=== PATIENT | male | born 1965 | race Caucasian/White ===

== ENCOUNTER → 2021-01-01 | Outpatient (CLI) | payer BC, OTHER ==
[~2021-01-01] MED LIST: ALBUTEROL1.25 MG/3 NEB; ASPIR 8181 MG PO; BENTYL 20MG TAB20 MG PO; CEFUROXIME500 MG PO; CLINDAMYCIN HC300 MG PO; CLOPIDOGREL75 MG PO; COZAAR100 MG PO; COZAAR50 MG PO; DICLOFENAC SODI25 MG PO; ELIQUIS 2.5 MG2.5 MG PO; FLAGYL500 MG PO; FLUZONE QU60 MCG/013 IM; FUROSEMIDE40 MG PO; HYDRALAZINE HCL25 MG PO; IBUPROFEN800 MG PO; K-DUR TAB 20 M20 MEQ PO; LATANOPROST 0.7.5 ML EYEBOTH; LEVAQUIN500 MG PO; LEVOFLOXACIN750 MG PO; LIPITOR40 MG PO; LOSARTAN-HCTZ1 EACH PO; MEDROL4 MG PO; METOPROLOL SUC100 MG PO; NORCO 7.5-3251 EACH PO; OMEPRAZOLE20 M1 PO; POTASSIUM CHLO20 ME2 PO; PROTONIX 40 MG40 M1 PO; ROBITUSSIN DM UD5 ML PO; SINGULAIR10 MG PO; SYMBICORT 160-1 INHA INH; TENORMIN 50 MG50 MG PO; TESSALON PERLE100 MG PO; VENTOLIN HFA 66.7 GM INH; VIBRAMYCIN100 MG PO; ZOCOR 40 MG TAB40 MG PO; ZOFRAN4 MG PO
== END ==
LOC: HEART 5 12-06 11:00 → CT 12-14 15:00 → HEART 5 13:13
DX: I87.1 Compression of vein (principal)
CPT/HCPCS: 36415; 82565; 93970; Q9967

== ENCOUNTER → 2021-02-15 | Outpatient (CLI) | payer BC, OTHER | LOC: KOH-I 15:49 | DX: M54.5 Low back pain (principal); M47.816 Spondylosis without myelopathy or radiculopathy, lumbar region | CPT/HCPCS: 72110 ==

== ENCOUNTER → 2021-02-20 | Outpatient (CLI) | payer BC, OTHER | LOC: KOH-I 16:49 | DX: M79.605 Pain in left leg (principal); M25.572 Pain in left ankle and joints of left foot; M79.672 Pain in left foot | CPT/HCPCS: 73590; 73610; 73630 ==

== ENCOUNTER → 2021-03-20 | Outpatient (CLI) | payer BC, OTHER | LOC: LAB 16:32 | PROVIDERS: Internal Medicine Cardiovascular Disease | DX: I50.9 Heart failure, unspecified (principal); R60.9 Edema, unspecified | CPT/HCPCS: 80048; 83880 ==

== ENCOUNTER 2021-03-23 19:26 | Inpatient (IN) | payer BC, OTHER ==
[~2021-03-23] VITALS: Ht 177.8 cm; Wt 119.7 kg
[~2021-03-23 19:26] MED LIST changes: -CLINDAMYCIN HC300 MG PO; -FUROSEMIDE40 MG PO; -LEVOFLOXACIN750 MG PO; -LOSARTAN-HCTZ1 EACH PO; -METOPROLOL SUC100 MG PO; -POTASSIUM CHLO20 ME2 PO; -PROTONIX 40 MG40 M1 PO; -ZOCOR 40 MG TAB40 MG PO
[2021-03-23 21:44] LABS: HEMOGLOBIN 13.7 gm/dl (14.0-17.5); RED BLOOD COUNT 4.51 M/UL (4.20-5.50); WHITE BLOOD COUNT 16.6 K/UL (4.5-11.0)
[2021-03-24] MEDS ORDERED: LOSARTAN-HCTZ1 EACH PO (02:23)
[2021-03-24] MEDS ORDERED: FUROSEMIDE40 MG PO (02:23)
[2021-03-24] MEDS ORDERED: METOPROLOL SUC100 MG PO (02:23)
[2021-03-24] MEDS ORDERED: POTASSIUM CHLO20 ME2 PO (02:24)
[2021-03-24] MEDS ORDERED: ZOCOR 40 MG TAB40 MG PO (02:25)
[2021-03-24] MEDS ORDERED: PROTONIX 40 MG40 M1 PO (02:27)
[2021-03-24] MEDS ORDERED: CLINDAMYCIN HC300 MG PO (02:31)
[2021-03-24 06:14] LABS: HEMOGLOBIN 12.7 gm/dl (14.0-17.5); RED BLOOD COUNT 4.17 M/UL (4.20-5.50)
[2021-03-24 06:18] LABS: WHITE BLOOD COUNT 12.2 K/UL (4.5-11.0)
[2021-03-24 06:37] LABS: BUN/CREATININE RATIO 15 (0-10)
[2021-03-25 05:17] LABS: HEMOGLOBIN 13.1 gm/dl (14.0-17.5); RED BLOOD COUNT 4.32 M/UL (4.20-5.50); WHITE BLOOD COUNT 12.3 K/UL (4.5-11.0)
[2021-03-25 05:47] LABS: BUN/CREATININE RATIO 15 (0-10)
[2021-03-26 03:35] LABS: HEMOGLOBIN 12.6 gm/dl (14.0-17.5); RED BLOOD COUNT 4.24 M/UL (4.20-5.50)
[2021-03-26 03:39] LABS: WHITE BLOOD COUNT 7.9 K/UL (4.5-11.0)
[2021-03-26 04:09] LABS: BUN/CREATININE RATIO 17 (0-10)
[2021-03-27 04:44] LABS: HEMOGLOBIN 13.2 gm/dl (14.0-17.5); RED BLOOD COUNT 4.45 M/UL (4.20-5.50)
[2021-03-27 04:53] LABS: WHITE BLOOD COUNT 5.8 K/UL (4.5-11.0)
[2021-03-27 05:06] LABS: BUN/CREATININE RATIO 15 (0-10)
[2021-03-27] MEDS ORDERED: LEVOFLOXACIN750 MG PO (15:13)
== END 2021-03-27 16:48 | disposition home health service (06) | DRG 264 ==
LOC: ER1 19:26 → M/S 22:48 → CDU 22:48 → M/S 03-24 01:28 → CDU 03-26 16:58 → M/S 03-26 16:58
PROVIDERS: Family Medicine; Physician Assistant; ADMIT Internal Medicine
PROC: 0JBP0ZZ Excision of Left Lower Leg Subcutaneous Tissue and Fascia, Open Approach (ICD-10-PCS; principal; 2021-03-23)
DX: I96 Gangrene, not elsewhere classified (principal); L03.116 Cellulitis of left lower limb; N17.9 Acute kidney failure, unspecified; L02.416 Cutaneous abscess of left lower limb; Z20.822 Contact with and (suspected) exposure to COVID-19; B96.1 Klebsiella pneumoniae [K. pneumoniae] as the cause of diseases classified elsewhere; E87.6 Hypokalemia; I10 Essential (primary) hypertension; S80.12XA Contusion of left lower leg, initial encounter; J45.909 Unspecified asthma, uncomplicated; D72.828 Other elevated white blood cell count; E78.5 Hyperlipidemia, unspecified; E86.0 Dehydration; Z96.659 Presence of unspecified artificial knee joint; G47.33 Obstructive sleep apnea (adult) (pediatric); K21.9 Gastro-esophageal reflux disease without esophagitis; E66.9 Obesity, unspecified; Z68.37 Body mass index [BMI] 37.0-37.9, adult; Z90.49 Acquired absence of other specified parts of digestive tract; Z88.0 Allergy status to penicillin; Z88.2 Allergy status to sulfonamides; Z80.0 Family history of malignant neoplasm of digestive organs; Z86.73 Personal history of transient ischemic attack (TIA), and cerebral infarction without residual deficits; Z91.81 History of falling; Z79.02 Long term (current) use of antithrombotics/antiplatelets; Z79.82 Long term (current) use of aspirin; Z79.899 Other long term (current) drug therapy
CPT/HCPCS: 0240U; 36415; 71045; 73590; 73701; 80048; 80053; 80202; 83605; 85025; 85652; 86140; 87040; 87070; 87077; 87186; 87205; 90471; 90715; 94760; 96374; 96375; 99284; J1100; J1170; J1335; J1650; J2001; J2185; J2250; J2370; J2405; J2550; J2704; J2765; J3010; J3370; J3480; J7030; J7070; J7120; Q9967

== ENCOUNTER → 2021-05-21 | Day surgery (SDC) | payer BC ==
[~2021-05-21] MED LIST changes: +CLINDAMYCIN HC300 MG PO; +FUROSEMIDE40 MG PO; +LEVOFLOXACIN750 MG PO; +LOSARTAN-HCTZ1 EACH PO; +METOPROLOL SUC100 MG PO; +POTASSIUM CHLO20 ME2 PO; +PROTONIX 40 MG40 M1 PO; +ZOCOR 40 MG TAB40 MG PO
== END | disposition home or self-care (01) ==
LOC: OR 07:10
DX: S81.802A Unspecified open wound, left lower leg, initial encounter (principal); I10 Essential (primary) hypertension; Z90.49 Acquired absence of other specified parts of digestive tract; Z88.0 Allergy status to penicillin
CPT/HCPCS: A6212; J1100; J2001; J2250; J2405; J2704; J2765; J3010; J7030; J7120